=== PATIENT | female | born 1985 | race Caucasian/White ===

== ENCOUNTER 2023-09-29 00:10 | Emergency (ER) | payer OTHER ==
[~2023-09-29] VITALS: Ht 162.6 cm; Wt 85.3 kg
[2023-09-29 00:16] VITALS: BP_SYST 143; PULSE 73; RESP 18; TEMP 98; O2SAT 98
[2023-09-29 01:00] LABS: BASOPHILS # (AUTO) 0.1 K/uL (0.0-0.2); BASOPHILS % (AUTO) 0.7 % (0.0-2.0); EOSINOPHILS # (AUTO) 0.6 K/uL (0.0-0.4); EOSINOPHILS % (AUTO) 6.7 % (0.0-4.0); HEMOGLOBIN 10.4 g/dL (12.0-16.0); LYMPHOCYTES # (AUTO) 2.1 K/uL (1.0-5.5); LYMPHOCYTES % (AUTO) 21.6 % (20.5-51.5); MEAN CORPUSCULAR HEMOGLOBIN 26 pg (27-31); MEAN CORPUSCULAR HGB CONC 33 % (32-36); MEAN CORPUSCULAR VOLUME 78 fL (79.0-98.0); MONOCYTES # (AUTO) 0.5 K/uL (0.0-1.0); MONOCYTES % (AUTO) 4.7 % (1.7-9.3); NEUTROPHILS # (AUTO) 6.4 K/uL (1.8-7.7); NEUTROPHILS % (AUTO) 66.3 % (40.0-70.0); PLATELET COUNT (AUTO) 407 K/uL (130-430); RED BLOOD CELL COUNT(AUTO) 3.98 MIL/uL (4.2-6.2); WHITE BLOOD COUNT (AUTO) 9.6 K/uL (4.8-10.8)
[2023-09-29] MEDS: LABETALOL HCL 20 MG/4 ML CARTRIDGE IVP ONE (01:04)
[2023-09-29 01:11] LABS: ALANINE AMINOTRANSFERASE 100 U/L (12-78); ALBUMIN 2.4 g/dL (3.4-4.8); ANION GAP 8 (5-15); ASPARTATE AMINOTRANSFERASE 62 U/L (10-37); BILIRUBIN,DIRECT 0.1 mg/dL (0.0-0.3); CALCIUM 9.2 mg/dL (8.4-11.0); CARBON DIOXIDE 28 mmol/L (23-29); CHLORIDE 103 mmol/L (98-107); CREATININE 0.72 mg/dL (0.55-1.30); GFR AFRICAN AMERICAN 117 mL/min (>90); GLUCOSE 98 mg/dL (74-106); SODIUM SERUM 139 mmol/L (136-145); TOTAL BILIRUBIN 0.2 mg/dL (0.0-1.0); TOTAL PROTEIN, SERUM 6.5 g/dL (6.4-8.3); UREA NITROGEN, BLOOD 9 mg/dL (8-21)
[2023-09-29 01:12] LABS: GFR NON AFRICAN-AMERICAN 97 mL/min (>90)
[2023-09-29] MEDS: MAGNESIUM SULFATE 50 ML IV ONE (01:46)
[2023-09-29 02:38] LABS: BILIRUBIN,URINE NEGATIVE (NEGATIVE); BLOOD, URINE 3+ (NEGATIVE); COLOR,URINE YELLOW (YELLOW); GLUCOSE,URINE NEGATIVE (NEGATIVE); KETONES,URINE NEGATIVE (NEGATIVE); LEUKOCYTE ESTERASE ,URINE NEGATIVE (NEGATIVE); NITRITE, URINE NEGATIVE (NEGATIVE); PH,URINE 7.5 (5.0-8.0); PROTEIN URINE NEGATIVE (NEGATIVE); UROBILINOGEN,URINE 0.2 (0.2-1.0)
[2023-09-29 02:52] LABS: CLARITY/URINE HAZY (CLEAR)
[2023-09-29 02:53] LABS: BACTERIA,URINE None Seen /HPF (None Seen); RBC,URINE 20-50 /HPF (0-3); WBC,URINE 0-3 /HPF (0-3)
[2023-09-29 04:02] VITALS: BP_SYST 119; PULSE 73; RESP 20; TEMP 98; O2SAT 98
== END 2023-09-29 04:02 | disposition short-term general hospital (02) ==
LOC: SED 00:10
DX: O15.9 Eclampsia, unspecified as to time period (principal); R51.9 Headache, unspecified; R03.0 Elevated blood-pressure reading, without diagnosis of hypertension; R94.5 Abnormal results of liver function studies; R00.2 Palpitations; Z20.822 Contact with and (suspected) exposure to COVID-19; R06.02 Shortness of breath; Z3A.00 Weeks of gestation of pregnancy not specified; Z88.5 Allergy status to narcotic agent; Z88.6 Allergy status to analgesic agent
CPT/HCPCS: 36415; 71045; 80048; 80076; 81000; 81001; 81015; 83735; 83880; 84484; 85025; 93005; 96365; 96366; 96375; 99285; J3475